=== PATIENT | male | born 1940 | race Two or more races ===

== ENCOUNTER 2023-04-09 12:49 | Inpatient (IN) | payer MEDICARE, MEDICAID ==
[~2023-04-09] VITALS: Ht 152.4 cm; Wt 79.2 kg
[2023-04-09 14:46] LABS: Basophils # (auto) 0 10 ^3/uL (0-0.2); Basophils % (auto) 0.7 % (0.0-2.0); Eosinophils # (auto) 0.5 10 ^3/uL (0-0.8); Eosinophils % (auto) 7.6 % (0.0-7.0); Hematocrit 42.1 % (41.0-53.0); Hemoglobin 14.1 g/dL (13.5-17.5); Lymphocytes # (auto) 2.1 10 ^3/uL (0.4-5.4); Lymphocytes % (auto) 30.7 % (10.0-50.0); Mean Corpuscular Hemoglobin 28.6 pg (28.0-32.0); Mean Corpuscular Hgb Conc. 33.6 g/dL (32.0-36.0); Monocytes # (auto) 0.7 10 ^3/uL (0-1.3); Monocytes % (auto) 10.4 % (0.0-12.0); Neutrophils # (auto) 3.5 10 ^3/uL (1.6-8.6); Neutrophils % (auto) 50.6 % (37.0-80.0); Red Blood Cells 4.95 10^6/uL (4.5-5.90); Red Cell Distribution Width 14.4 % (11.8-14.3)
[2023-04-09 15:09] LABS: Albumin 3.9 g/dL (3.4-5.0); Calcium 8.7 mg/dL (8.5-10.1); Potassium 4.7 mmol/L (3.5-5.1)
[2023-04-09 15:12] LABS: BUN/Creatinine Ratio 12.2 (10.0-20.0); Bilirubin, Total 0.8 mg/dL (0.2-1.0); CRP High Sensitivity 0.41 mg/dL (< 0.3); Total Protein 7.6 g/dL (6.4-8.2)
[2023-04-09] MEDS ORDERED: VANCOMYCIN 1GM/250ML 250 ML IV ONE (16:30)
[2023-04-09] MEDS ORDERED: ENOXAPARIN SOD 80 MG/0.8ML SYRINGE SC ONE (17:45)
[2023-04-09] MEDS ORDERED: MORPHINE SULFATE INJ 2 MG/ml SYRG IV PRN (19:30)
[2023-04-09] MEDS ORDERED: ONDANSETRON HCL 4 MG/2 ML VIAL IV PRN (19:30)
[2023-04-09] MEDS ORDERED: DOCUSATE SOD 100 MG CAP PO PRN (19:30)
[2023-04-09] MEDS ORDERED: VANCOMYCIN PER PHARMACY 0 MG IV SCH (19:30)
[2023-04-10 06:04] LABS: Basophils # (auto) 0 10 ^3/uL (0-0.2); Basophils % (auto) 0.6 % (0.0-2.0); Eosinophils # (auto) 0.7 10 ^3/uL (0-0.8); Eosinophils % (auto) 9.6 % (0.0-7.0); Hematocrit 39.4 % (41.0-53.0); Hemoglobin 13.7 g/dL (13.5-17.5); Lymphocytes # (auto) 2.3 10 ^3/uL (0.4-5.4); Mean Corpuscular Hemoglobin 29.4 pg (28.0-32.0); Mean Corpuscular Hgb Conc. 34.9 g/dL (32.0-36.0); Mean Corpuscular Volume 84.5 fL (80.0-100.0); Monocytes # (auto) 0.7 10 ^3/uL (0-1.3); Monocytes % (auto) 10.5 % (0.0-12.0); Neutrophils # (auto) 3.2 10 ^3/uL (1.6-8.6); Neutrophils % (auto) 46.3 % (37.0-80.0); Nucleated Red Blood Cells % 0.1 %; Red Blood Cells 4.67 10^6/uL (4.5-5.90); Red Cell Distribution Width 14.1 % (11.8-14.3); White Blood Cell 6.9 10^3/uL (4.4-10.8)
[2023-04-10 06:25] LABS: Albumin 3.4 g/dL (3.4-5.0); BUN/Creatinine Ratio 11.8 (10.0-20.0); Calcium 8.3 mg/dL (8.5-10.1)
[2023-04-10 06:27] LABS: Bilirubin, Total 0.9 mg/dL (0.2-1.0); Total Protein 6.9 g/dL (6.4-8.2)
[2023-04-10] MEDS: ENOXAPARIN SOD 80 MG/0.8ML SYRINGE SC SCH ×2 (08:13→22:15)
[2023-04-10] MEDS: cefTRIAXone 1GM/50ML D5W 50 ML IV SCH (08:13)
[2023-04-10 10:23] VITALS: BP 135/75
[2023-04-10] MEDS ORDERED: AMLO1TAB22 PO (10:53)
[2023-04-10] MEDS ORDERED: IBUP-1455 PO (10:53)
[2023-04-10] MEDS ORDERED: SILV-51 TOP (10:53)
[2023-04-10] MEDS ORDERED: TAMS0.4C36 PO (10:53)
[2023-04-10] MEDS ORDERED: DONE5TAB80 PO (10:53)
[2023-04-10] MEDS ORDERED: QUET1TAB11 PO (10:53)
[2023-04-10] MEDS ORDERED: ALLO300T2 PO (10:53)
[2023-04-10] MEDS ORDERED: CITA-77 PO (10:53)
[2023-04-10] MEDS ORDERED: TRAZ-227 PO (10:53)
[2023-04-10] MEDS ORDERED: CEPH500C PO (10:53)
[2023-04-10 12:45] VITALS: BP 135/75
[2023-04-10] MEDS ORDERED: DONEPEZIL HYDROCHLORIDE 5 MG TAB PO ONE (14:00)
[2023-04-10] MEDS ORDERED: amLODIPine BESYLATE 5 MG TAB PO ONE (14:00)
[2023-04-10] MEDS: ALLOPURINOL 300 MG TAB PO SCH (15:02)
[2023-04-10] MEDS: CITALOPRAM HYDROBR 20 MG TAB PO SCH (15:02)
[2023-04-10 17:00] VITALS: BP 145/81
[2023-04-10] MEDS: TAMSULOSIN HYDROCHLORIDE 0.4 MG CAP PO SCH (18:11)
[2023-04-10] MEDS: VANCOMYCIN 1GM/250ML 250 ML IV SCH (22:14)
[2023-04-10] MEDS: QUEtiapine FUMARATE 25 MG TAB PO SCH (22:15)
[2023-04-11] MEDS: traZODone HCL 50 MG TAB PO SCH ×2 (00:31→23:36)
[2023-04-11 05:28] VITALS: BP 119/72
[2023-04-11 08:00] VITALS: BP 135/80
[2023-04-11] MEDS: CITALOPRAM HYDROBR 20 MG TAB PO SCH (08:34)
[2023-04-11] MEDS: ALLOPURINOL 300 MG TAB PO SCH (08:34)
[2023-04-11] MEDS: amLODIPine BESYLATE 5 MG TAB PO SCH ×2 (08:36→09:55)
[2023-04-11] MEDS: ENOXAPARIN SOD 80 MG/0.8ML SYRINGE SC SCH ×2 (08:37→21:33)
[2023-04-11] MEDS: cefTRIAXone 1GM/50ML D5W 50 ML IV SCH (08:38)
[2023-04-11 09:41] VITALS: BP 135/80
[2023-04-11 12:30] VITALS: BP 136/87
[2023-04-11 15:33] VITALS: BP 128/73
[2023-04-11] MEDS: TAMSULOSIN HYDROCHLORIDE 0.4 MG CAP PO SCH (17:09)
[2023-04-11] MEDS ORDERED: chlordiazePOXIDE HCL 5 MG CAP PO SCH (18:00)
[2023-04-11] MEDS: VANCOMYCIN 1GM/250ML 250 ML IV SCH (21:34)
[2023-04-11] MEDS: DONEPEZIL HYDROCHLORIDE 5 MG TAB PO SCH (21:34)
[2023-04-11] MEDS: QUEtiapine FUMARATE 25 MG TAB PO SCH (21:34)
[2023-04-11 22:00] VITALS: BP 135/79
[2023-04-12 05:00] VITALS: BP 123/63
[2023-04-12 08:00] VITALS: BP 141/71
[2023-04-12 08:51] VITALS: BP 141/71
[2023-04-12] MEDS: cefTRIAXone 1GM/50ML D5W 50 ML IV SCH (08:56)
[2023-04-12] MEDS: CITALOPRAM HYDROBR 20 MG TAB PO SCH (08:57)
[2023-04-12] MEDS: ENOXAPARIN SOD 80 MG/0.8ML SYRINGE SC SCH ×2 (08:57→20:00)
[2023-04-12] MEDS: ALLOPURINOL 300 MG TAB PO SCH (08:57)
[2023-04-12] MEDS: amLODIPine BESYLATE 5 MG TAB PO SCH (08:58)
[2023-04-12 12:57] VITALS: BP 131/70
[2023-04-12 16:36] VITALS: BP 136/75
[2023-04-12] MEDS: TAMSULOSIN HYDROCHLORIDE 0.4 MG CAP PO SCH (17:38)
[2023-04-12] MEDS: VANCOMYCIN 1GM/250ML 250 ML IV SCH (20:00)
[2023-04-12] MEDS: DONEPEZIL HYDROCHLORIDE 5 MG TAB PO SCH (21:53)
[2023-04-12] MEDS: traZODone HCL 50 MG TAB PO SCH (21:53)
[2023-04-12] MEDS: QUEtiapine FUMARATE 25 MG TAB PO SCH (21:53)
[2023-04-12 22:00] VITALS: BP 115/77
[2023-04-13 05:00] VITALS: BP 125/72
[2023-04-13 08:00] VITALS: BP 114/74
[2023-04-13] MEDS: CITALOPRAM HYDROBR 20 MG TAB PO SCH (08:15)
[2023-04-13] MEDS: ALLOPURINOL 300 MG TAB PO SCH (08:15)
[2023-04-13] MEDS: cefTRIAXone 1GM/50ML D5W 50 ML IV SCH (08:16)
[2023-04-13] MEDS: ENOXAPARIN SOD 80 MG/0.8ML SYRINGE SC SCH (08:16)
[2023-04-13] MEDS: amLODIPine BESYLATE 5 MG TAB PO SCH (08:16)
[2023-04-13] MEDS ORDERED: CEPH250C PO (10:42)
[2023-04-13 11:10] VITALS: BP 114/74
== END 2023-04-13 13:20 | disposition home health service (06) | DRG 603 ==
LOC: ER 12:49 → OVERFLOW 19:35 → CENTRAL 04-10 10:43 → EAST 04-10 15:26
PROVIDERS: ADMIT Nurse Practitioner Family; ATTEND Internal Medicine Geriatric Medicine
DX: L03.115 Cellulitis of right lower limb (principal); I82.401 Acute embolism and thrombosis of unspecified deep veins of right lower extremity; L03.116 Cellulitis of left lower limb; M10.9 Gout, unspecified; I10 Essential (primary) hypertension; F03.90 Unspecified dementia, unspecified severity, without behavioral disturbance, psychotic disturbance, mood disturbance, and anxiety; R74.01 Elevation of levels of liver transaminase levels; Z86.73 Personal history of transient ischemic attack (TIA), and cerebral infarction without residual deficits
CPT/HCPCS: 36415; 73630; 80053; 80202; 83605; 83880; 84484; 85025; 85652; 86141; 87077; 87186; 87205; 93925; 93970; 96365; 96367; 96372; G0378; J0696